=== PATIENT | male | born 1960 | race Caucasian/White ===

== ENCOUNTER 2020-10-26 19:14 | Emergency (ER) | payer MEDICAID ==
[~2020-10-26] VITALS: Ht 175.3 cm; Wt 81.6 kg
[~2020-10-26 19:14] MED LIST: ENAL20TA70 PO; LEVO100C2 PO; METF1000 PO
--- NOTE | 2020-10-26 19:14 | NUR ---
Patient to ER bed 1 to gown for evaluation. Side rails up. Report given to self. ER at bedside examining patient.
--- NOTE | 2020-10-26 19:18 | NUR ---
60 y/o male arrived with BS 32, was given amp of D10 by paramedics on scene upon arrival. Pt awake and alert oriented x 4. Repeat accucheck 58. Pt medicated with one amp fo D50 per . order of Dr. Rubin. Will repeat accucheck in 30 minutes. Will continue to monitor.
[2020-10-26 19:28] VITALS: BP_SYST 213
--- NOTE | 2020-10-26 19:48 | NUR ---
Patient transported to radiology via gurney, accompanied by diesel technician.
[2020-10-26 19:52] LABS: BASOPHILS # (AUTO) 0.1 K/uL (0.0-0.2); BASOPHILS % (AUTO) 0.7 % (0.0-2.0); EOSINOPHILS # (AUTO) 0.1 K/uL (0.0-0.4); EOSINOPHILS % (AUTO) 0.9 % (0.0-4.0); HEMATOCRIT 41.3 % (36-54); HEMOGLOBIN 13.4 g/dL (14.0-18.0); LYMPHOCYTES % (AUTO) 27.9 % (20.5-51.5); MEAN CORPUSCULAR HEMOGLOBIN 30 pg (27-31); MEAN CORPUSCULAR HGB CONC 33 % (32-36); MEAN CORPUSCULAR VOLUME 92 fL (79.0-98.0); MONOCYTES # (AUTO) 1.3 K/uL (0.0-1.0); MONOCYTES % (AUTO) 12.3 % (1.7-9.3); NEUTROPHILS # (AUTO) 6.3 K/uL (1.8-7.7); NEUTROPHILS % (AUTO) 58.2 % (40.0-70.0); PLATELET COUNT (AUTO) 375 K/uL (130-430); RED BLOOD CELL COUNT(AUTO) 4.48 MIL/uL (4.2-6.2); RED CELL DISTRIBUTION WIDTH 13.7 % (9.0-15.0); WHITE BLOOD COUNT (AUTO) 10.9 K/uL (4.8-10.8)
--- NOTE | 2020-10-26 20:05 | NUR ---
Repeat accucheck noted at 97. Pt has already been given food tray, tolerating meals. Will continue to monitor.
[2020-10-26 20:11] LABS: ANION GAP 7 (5-15); CALCIUM 8.7 mg/dL (8.4-11.0); CHLORIDE 98 mmol/L (98-107); CREATININE 1.04 mg/dL (0.55-1.30); GLUCOSE 168 mg/dL (70-99); POTASSIUM 3.5 mmol/L (3.5-5.1); SODIUM SERUM 134 mmol/L (136-145); UREA NITROGEN, BLOOD 28 mg/dL (8-21)
[2020-10-26 20:14] LABS: GFR AFRICAN AMERICAN 94 mL/min (>90)
[2020-10-26 20:22] LABS: ALANINE AMINOTRANSFERASE 48 U/L (12-78); ALBUMIN 3.8 g/dL (3.4-4.8); ASPARTATE AMINOTRANSFERASE 47 U/L (10-37); TOTAL BILIRUBIN 0.2 mg/dL (0.0-1.0)
[2020-10-26] MEDS ORDERED: DEXTROSE 50% JECT 50 ML DISP.SYRIN IVP ONE (20:30)
--- NOTE | 2020-10-26 21:00 | NUR ---
Patient resting quietly. No acute distress noted. Vital signs within normal range. Accucheck MD Sourav made aware. Pt continues to be A/O x4. Will continue to monitor.
--- NOTE | 2020-10-26 22:00 | NUR ---
Patient resting quietly. No acute distress noted. Vital signs within normal range. Accmerrill Ordonez MD made aware. Pt continues to be A/O x4. Will continue to monitor.
--- NOTE | 2020-10-26 22:38 | NUR ---
Dr. Xiao speaking with mother on the phone about pt's plan of care.
[2020-10-26 23:10] VITALS: BP_SYST 135
--- NOTE | 2020-10-26 23:10 | NUR ---
Patient given written and verbal discharge instructions and verbalizes understanding. ER MD discussed with patient the results and treatment provided. Patient in stable condition. ID arm band removed. IV catheter removed intact and dressing applied, no active bleeding. Patient educated on hypoglycemia management and to follow up with PMD. Pain Scale 0/10. Opportunity for questions provided and answered. Medication side effect fact sheet provided.
== END 2020-10-26 23:10 | disposition home or self-care (01) ==
LOC: SED 19:14
DX: E16.2 Hypoglycemia, unspecified (principal)
CPT/HCPCS: 36415; 70450-TC; 76376; 80053; 82962; 84484; 85025; 93005; 96374; 99291

== ENCOUNTER 2020-11-17 20:54 | Emergency (ER) | payer MEDICAID ==
[~2020-11-17] VITALS: Ht 177.8 cm; Wt 81.6 kg
[2020-11-17 20:55] VITALS: BP_SYST 182
[2020-11-17 21:13] LABS: BASOPHILS # (AUTO) 0.1 K/uL (0.0-0.2); BASOPHILS % (AUTO) 0.9 % (0.0-2.0); EOSINOPHILS % (AUTO) 0.1 % (0.0-4.0); HEMATOCRIT 44.4 % (36-54); HEMOGLOBIN 14.7 g/dL (14.0-18.0); LYMPHOCYTES # (AUTO) 1.7 K/uL (1.0-5.5); LYMPHOCYTES % (AUTO) 14.6 % (20.5-51.5); MEAN CORPUSCULAR HEMOGLOBIN 30 pg (27-31); MEAN CORPUSCULAR HGB CONC 33 % (32-36); MEAN CORPUSCULAR VOLUME 91 fL (79.0-98.0); MONOCYTES # (AUTO) 0.7 K/uL (0.0-1.0); MONOCYTES % (AUTO) 6.3 % (1.7-9.3); NEUTROPHILS # (AUTO) 9.3 K/uL (1.8-7.7); NEUTROPHILS % (AUTO) 78.1 % (40.0-70.0); PLATELET COUNT (AUTO) 406 K/uL (130-430); RED BLOOD CELL COUNT(AUTO) 4.86 MIL/uL (4.2-6.2); RED CELL DISTRIBUTION WIDTH 13.6 % (9.0-15.0); WHITE BLOOD COUNT (AUTO) 11.9 K/uL (4.8-10.8)
[2020-11-17 21:26] LABS: CALCIUM 9.1 mg/dL (8.4-11.0); CREATININE 1.02 mg/dL (0.55-1.30); POTASSIUM 3.5 mmol/L (3.5-5.1); PROTHROMBIN TIME 9.9 SECS (9.5-12.5)
[2020-11-17 21:32] LABS: ALBUMIN 4.4 g/dL (3.4-4.8); TOTAL BILIRUBIN 0.3 mg/dL (0.0-1.0)
[2020-11-17 21:55] LABS: CKMB RELATIVE INDEX 2.4 (0.0-2.9)
[2020-11-18 00:37] VITALS: BP_SYST 135
[2020-11-18] MEDS: DEXTROSE 50% JECT 50 ML DISP.SYRIN IVP ONE (00:53)
== END 2020-11-18 00:37 | disposition home or self-care (01) ==
LOC: SED 20:54
DX: E11.649 Type 2 diabetes mellitus with hypoglycemia without coma (principal); I10 Essential (primary) hypertension; Z79.899 Other long term (current) drug therapy
CPT/HCPCS: 36415; 71045; 80053; 82550-TC; 82553-TC; 82962; 83880; 84484; 85025; 85610-TC; 85730-TC; 93005; 96374; 99285

== ENCOUNTER 2020-11-28 00:25 | Emergency (ER) | payer MEDICAID ==
[~2020-11-28] VITALS: Ht 177.8 cm; Wt 68.0 kg
[2020-11-28 00:30] VITALS: BP_SYST 179
[2020-11-28] MEDS ORDERED: DEXTROSE 50% JECT 50 ML DISP.SYRIN IVP ONE (00:45)
== END 2020-11-28 02:50 | disposition left against medical advice (07) ==
LOC: SED 00:25
DX: E11.649 Type 2 diabetes mellitus with hypoglycemia without coma (principal); I10 Essential (primary) hypertension; Z79.899 Other long term (current) drug therapy
CPT/HCPCS: 70450-TC; 76376; 82962; 96374; 99284

== ENCOUNTER 2021-02-12 12:57 | Inpatient (IN) | payer MEDICAID ==
[~2021-02-12] VITALS: Ht 172.7 cm; Wt 77.1 kg
[2021-02-12 13:13] VITALS: BP_SYST 170
[2021-02-12] MEDS ORDERED: ONDANSETRON HCL 4 MG/2 ML VIAL IVP ONE (13:15)
[2021-02-12] MEDS ORDERED: NACL 0.9% 1,000 ML IV ONE ×3 (13:15→16:45)
--- NOTE | 2021-02-12 13:15 | NUR ---
Patient to ER bed 1 to gown for evaluation. Side rails up. Report given to Porsper SULLIVAN.
--- NOTE | 2021-02-12 13:20 | NUR ---
Pt came to Er for abdominal pain in all quadrants pain 10/10 nausea. Pt in [facility], severe pain noted, awaiting MD.
--- NOTE | 2021-02-12 13:30 | NUR ---
ER at bedside examining patient.
[2021-02-12 13:37] LABS: BASOPHILS % (AUTO) 0.5 % (0.0-2.0); EOSINOPHILS % (AUTO) 0.2 % (0.0-4.0); HEMATOCRIT 50.1 % (36-54); HEMOGLOBIN 16.9 g/dL (14.0-18.0); LYMPHOCYTES # (AUTO) 1.2 K/uL (1.0-5.5); LYMPHOCYTES % (AUTO) 17.5 % (20.5-51.5); MEAN CORPUSCULAR HEMOGLOBIN 31 pg (27-31); MEAN CORPUSCULAR HGB CONC 34 % (32-36); MEAN CORPUSCULAR VOLUME 92 fL (79.0-98.0); MONOCYTES # (AUTO) 0.3 K/uL (0.0-1.0); MONOCYTES % (AUTO) 3.8 % (1.7-9.3); NEUTROPHILS # (AUTO) 5.3 K/uL (1.8-7.7); PLATELET COUNT (AUTO) 503 K/uL (130-430); RED BLOOD CELL COUNT(AUTO) 5.45 MIL/uL (4.2-6.2); RED CELL DISTRIBUTION WIDTH 13.5 % (9.0-15.0); WHITE BLOOD COUNT (AUTO) 6.8 K/uL (4.8-10.8)
[2021-02-12] MEDS ORDERED: HALOPERIDOL LACTATE 5 MG/ML VIAL IVP ONE (13:45)
[2021-02-12 13:52] LABS: CALCIUM 9.7 mg/dL (8.4-11.0); CREATININE 1.45 mg/dL (0.55-1.30)
[2021-02-12] MEDS ORDERED: MORPHINE 4 MG INJ. 4 MG/ML VIAL IVP ONE (14:00)
[2021-02-12 14:08] LABS: ALBUMIN 3.9 g/dL (3.4-4.8); TOTAL BILIRUBIN 0.6 mg/dL (0.0-1.0)
[2021-02-12 14:10] LABS: POTASSIUM 6.1 mmol/L (3.5-5.1)
--- NOTE | 2021-02-12 14:40 | NUR ---
REPORT RECEIVED FROM ERIKA SULLIVAN.
[2021-02-12] MEDS ORDERED: INSULIN REGULAR, HUMAN 10 UNITS/0.1 ML INJ IVP ONE (14:45)
--- NOTE | 2021-02-12 15:05 | NUR ---
report received from NATE Jarrell
--- NOTE | 2021-02-12 15:15 | NUR ---
[id number]
[2021-02-12 15:26] LABS: FREE T4 (FREE THYROXINE) 1.3 ng/dl (0.8-1.5); THYROID STIMULATING HORMONE 3.07 uIu/mL (0.36-3.74)
[2021-02-12 15:30] LABS: BILIRUBIN,URINE NEGATIVE (NEGATIVE); BLOOD, URINE NEGATIVE (NEGATIVE); CLARITY/URINE CLEAR (CLEAR); COLOR,URINE YELLOW (YELLOW); GLUCOSE,URINE 3+ (NEGATIVE); KETONES,URINE 3+ (NEGATIVE); LEUKOCYTE ESTERASE ,URINE NEGATIVE (NEGATIVE); NITRITE, URINE NEGATIVE (NEGATIVE); PH,URINE 5.5 (5.0-8.0); PROTEIN URINE NEGATIVE (NEGATIVE); UROBILINOGEN,URINE 0.2 (0.2-1.0)
[2021-02-12 16:08] LABS: BACTERIA,URINE FEW /HPF (None Seen); MUCUS,URINE None Seen /LPF (None Seen); RBC,URINE 0-3 /HPF (0-3); WBC,URINE NONE SEEN /HPF (0-3)
[2021-02-12] MEDS ORDERED: INSULIN REGULAR, HUMAN 100 UNITS/ML, 10 ML VIAL IVP ONE (16:30)
--- NOTE | 2021-02-12 16:30 | NUR ---
BG 447
[2021-02-12] MEDS ORDERED: DEXTROSE 50% JECT 50 ML DISP.SYRIN IVP PRN (16:45)
[2021-02-12] MEDS ORDERED: LEVOTHYROXINE SODIUM 0.1 MG TABLET PO ONE (17:15)
--- NOTE | 2021-02-12 17:28 | NUR ---
BG 436
--- NOTE | 2021-02-12 18:34 | NUR ---
ACCUCHEK 425. Dr. Gann notified. Give 1L NS bolus Now and recheck accucheck
--- NOTE | 2021-02-12 18:49 | NUR ---
Patient will be admitted to care of BEDSIDE NURSE. Admitted to TELEMETRY unit. Will go to room 125. Belongings list completed. Complete and up to date summary report printed. SBAR report to be given at bedside with opportunity for questions.
--- NOTE | 2021-02-12 19:05 | NUR ---
ADMISSION NOTE Received patient from ER via ubaldo, received report from NATE ZELAYA. Patient admitted with diagnosis of ABDOMINAL PAIN. Patient oriented to hospital routine, call light, toileting and safety-patient verbalized understanding.
[2021-02-12 19:20] LABS: CALCIUM 9.7 mg/dL (8.4-11.0); CREATININE 1.36 mg/dL (0.55-1.30); POTASSIUM 4.8 mmol/L (3.5-5.1)
[2021-02-12] MEDS: NACL 0.9% 1,000 ML IV SCH (19:30)
[2021-02-12] MEDS ORDERED: ONDANSETRON HCL 4 MG/2 ML VIAL IVP PRN (19:45)
[2021-02-12] MEDS ORDERED: MORPHINE 2 MG/ML INJ. SYRINGE IVP PRN (19:45)
[2021-02-12] MEDS ORDERED: MORPHINE 4 MG INJ. 4 MG/ML VIAL IVP PRN (19:45)
[2021-02-12] MEDS ORDERED: METOCLOPRAMIDE HCL 10 MG/2 ML VIAL IVP PRN (19:45)
[2021-02-12] MEDS ORDERED: ACETAMINOPHEN 325 MG TABLET PO PRN (19:45)
[2021-02-12 19:49] VITALS: BP_SYST 160
--- NOTE | 2021-02-12 21:10 | NUR ---
HIGH ALERT NOTE: Called Dr. JIMÉNEZ back AND identified within the medical roster to verify physician authenticity. MD NOTIFIED OF LABS PER MD REQUEST AND BS LEVELS, MD ORDERED ONE TIME DOSE OF REGULAR INSULIN 12 UNITS SUBQ ONCE NOW.
[2021-02-12] MEDS ORDERED: INSULIN REGULAR, HUMAN 100 UNITS/ML, 10 ML VIAL SUBCUT ONE (21:15)
[2021-02-12] MEDS: INSULIN REGULAR, HUMAN 100 UNITS/ML, 10 ML VIAL (humuLIN R) SUBCUT PRN (23:20)
[2021-02-13] MEDS ORDERED: cloNIDine HCL 0.1 MG TABLET PO PRN (01:30)
[2021-02-13] MEDS ORDERED: HYDROmorphone 1 MG/ML INJ. CARTRIDGE IVP PRN (01:30)
--- NOTE | 2021-02-13 01:30 | NUR ---
HIGH ALERT NOTE: Called Dr. AMBROSIO back AND identified within the medical roster to verify physician authenticity. NOTIFIED THAT PATIENT STATED THAT MORPHINE DOESN'T WORK FOR HIM AND REQUESTING FOR DILAUDID INSTEAD FOR PAIN, MD ALSO NOTIFIED OF PATIENT'S ELEVATED BP. MD ORDERED DILAUDID 1MG IVP FOR MILD PAIN Q4H PRN, DILAUDID 2MG IVP FOR MODERATE TO SEVERE PAIN Q4H PRN, AND CLONIDINE 0.1MG PO Q6H PRN FOR SBP GREATER THAN 155.
[2021-02-13] MEDS ORDERED: HYDROmorphone 2 MG/ML VIAL ONE (01:45)
[2021-02-13] MEDS: NACL 0.9% 1,000 ML IV SCH ×4 (01:46→23:21)
[2021-02-13] MEDS: HYDROmorphone 2 MG/ML VIAL IVP PRN (01:48)
--- NOTE | 2021-02-13 04:26 | NUR ---
CONSULT REASON FOR CONSULT: DKA CONSULTING PHYSICIAN: DR. JIMÉNEZ PERSONAL INJURY SPECIALIST PHONE NUMBER: [phone] ORDERING PHYSICIAN: DR. DAILY JIMÉNEZ CAME AND SAW THE PATIENT IN ER.
--- NOTE | 2021-02-13 04:32 | NUR ---
CONSULT REASON FOR CONSULT: ABDOMINAL PAIN PERSON I SPOKE WITH: RAAD CONSULTING PHYSICIAN: DR. MCDANIEL (DR. GUTIERREZ HOUSING INSTALLER) CREDIT ADMINISTRATION MANAGER MAGGIE NUMBER: [phone] ORDERING PHYSICIAN: DR. AMBROSIO
[2021-02-13 05:00] VITALS: BP_SYST 146
[2021-02-13 06:28] LABS: BASOPHILS % (AUTO) 0.2 % (0.0-2.0); HEMOGLOBIN 14.9 g/dL (14.0-18.0); LYMPHOCYTES # (AUTO) 1.5 K/uL (1.0-5.5); LYMPHOCYTES % (AUTO) 10.6 % (20.5-51.5); MEAN CORPUSCULAR HEMOGLOBIN 30 pg (27-31); MEAN CORPUSCULAR HGB CONC 34 % (32-36); MEAN CORPUSCULAR VOLUME 90 fL (79.0-98.0); MONOCYTES # (AUTO) 0.8 K/uL (0.0-1.0); MONOCYTES % (AUTO) 5.2 % (1.7-9.3); NEUTROPHILS # (AUTO) 12.2 K/uL (1.8-7.7); PLATELET COUNT (AUTO) 475 K/uL (130-430); RED CELL DISTRIBUTION WIDTH 13.4 % (9.0-15.0); WHITE BLOOD COUNT (AUTO) 14.5 K/uL (4.8-10.8)
[2021-02-13] MEDS: LEVOTHYROXINE SODIUM 0.1 MG TABLET PO SCH (06:29)
[2021-02-13] MEDS: INSULIN REGULAR, HUMAN 100 UNITS/ML, 10 ML VIAL (humuLIN R) SUBCUT PRN ×4 (06:34→23:26)
--- NOTE | 2021-02-13 06:39 | NUR ---
CLOSING NOTES Patient resting in bed, awake, breathing evenly and nonlabored on room air. IVF running, patient tolerating it well. Due medications and PRN medications were given throughout the shift, patient tolerated them well. BS was checked as ordered, coverage was needed and given at both times. Hygiene care was done, patient denies any pain or SOB at this time. Needs met throughout the shift. Fall/safety precautions, will endorse care to morning shift RN.
[2021-02-13 06:41] LABS: ALBUMIN 3.3 g/dL (3.4-4.8); CALCIUM 8.5 mg/dL (8.4-11.0); CREATININE 0.94 mg/dL (0.55-1.30); POTASSIUM 4.1 mmol/L (3.5-5.1); TOTAL BILIRUBIN 0.4 mg/dL (0.0-1.0)
--- NOTE | 2021-02-13 06:53 | NUR ---
Nutrition Update Mark Scale 17 noted. Pt admitted for Abdominal pain Diet: Clear liquid BMI: 25.8 kg/m2 RD to follow per nutrition care standards.
[2021-02-13 08:00] VITALS: BP_SYST 156
--- NOTE | 2021-02-13 10:10 | NUR ---
ASSESSED AND EXAMINED PT , THIS RN CONCURS WITH ERVIN ORTIZ'S ASSESSMENT OF PT
--- NOTE | 2021-02-13 11:30 | NUR ---
PT IN BED, RESTING, EYES CLOSED BUT RESPONDS TO VOICE. NO C/O OF ABD PAIN, NO N/V. WILL CONT TO MONITOR.
[2021-02-13 12:59] VITALS: BP_SYST 164
--- NOTE | 2021-02-13 13:16 | NUR ---
Spoke w/ Rojas at [facility]-Patient is capitated to [facility]. Plan to transfer to [facility] under the care of Dr Cooper.
--- NOTE | 2021-02-13 15:01 | NUR ---
Rounded on patient, patient in bed, no complaints of pain, filled water and emptied urinal. patient voided 750ml urine.
[2021-02-13 16:09] VITALS: BP_SYST 162
--- NOTE | 2021-02-13 17:14 | NUR ---
Patient to transfer to [facility] under the care of Dr Cooper. [facility] is on will call [phone] Auth # [id number]. Rojas will call with room # and # for report for [facility] [phone]. Discharge disposition 02
--- NOTE | 2021-02-13 18:43 | NUR ---
CLOSING NOTES, PT HAS BEEN STABLE THE WHOLE SHIFT, BLOOD SUGAR IN THE 300S, GIVEN CORRESPONDING DOSE OR REG INSULIN. NO C/O OF PAIN SINCE START OF SHIFT, NO N/V. WILL ENDORSE TO NIGHT NURSE.
[2021-02-13 19:26] VITALS: BP_SYST 142
[2021-02-13 20:09] VITALS: BP_SYST 142
--- NOTE | 2021-02-13 20:09 | NUR ---
OPENING NOTES Received report from Andres RN earlier. Patient resting in bed, AAOx4, vital signs stable, patient denies any pain or SOB at this time. Patient has an IV on the left AC 20g, IVF running, patient tolerating it well. No s/s of infiltration or infection at this time. Educated patient on plan of care, fall/safety precautions, call light system, patient stated understanding with return demonstration. Patient is pending transfer to [facility], no call from Rojas as of now. Patient is aware. Bed is locked, armed, and at lowest position, will continue to monitor.
--- NOTE | 2021-02-13 21:30 | NUR ---
CALLED COLTON PENG, NETWORK OPERATIONS CENTER ENGINEER FROM [facility] TO FOLLOW UP TRANSFER, NO RESPONSE, LEFT A VOICEMAIL.
[2021-02-14 00:01] VITALS: BP_SYST 144
[2021-02-14] MEDS: HYDROmorphone 2 MG/ML VIAL IVP PRN (01:24)
--- NOTE | 2021-02-14 01:24 | NUR ---
PATIENT COMPLAINED OF A HEADACHE, MODERATE PAIN. EDUCATED PATIENT ON NON PHARMACOLOGICAL INTERVENTIONS AND PRN MEDICATIONS. PATIENT STATED UNDERSTANDING. ADMINISTERED MEDICATION. PATIENT TOLERATED WELL. NO OTHER NEEDS AT THIS TIME. FALL/SAFETY PRECAUTIONS, WILL CONTINUE TO MONITOR.
[2021-02-14 06:28] VITALS: BP_SYST 137
[2021-02-14] MEDS: LEVOTHYROXINE SODIUM 0.1 MG TABLET PO SCH (06:28)
[2021-02-14] MEDS: INSULIN REGULAR, HUMAN 100 UNITS/ML, 10 ML VIAL (humuLIN R) SUBCUT PRN ×2 (06:34→11:17)
--- NOTE | 2021-02-14 06:58 | NUR ---
CLOSING NOTES Patient resting in bed, awake, breathing evenly and nonlabored on room air. IVF running, patient tolerating it well. Due medications and PRN medications were given throughout the shift, patient tolerated them well. BS was checked as ordered, coverage was needed and given at both times. Patient denies any SOB at this time. PRN pain medication was given for mild pain this morning. Needs met throughout the shift. Fall/safety precautions, will endorse care to morning shift RN.
[2021-02-14 08:00] VITALS: BP_SYST 125
--- NOTE | 2021-02-14 08:00 | NUR ---
Opening note Patient is sitting in bed A&Ox4, agitated and frustrated states "I dont understand why I'm still here. Attempted to educate however patient "doesn't want to hear it". No complaint of pain no signs or symptoms of respiratory distress. Iv is in place, no signs or symptoms of infiltration. Educated patient on plan of care, patient verbalized frustration and wants to leave. Will continue to reenforce education. Bed is in lowest position, fall and aspiration precautions are in place. Will continue to monitor.
--- NOTE | 2021-02-14 08:05 | NUR ---
RN note Abdominal ultrasound ordered, educated patietn that he must stay NPO until ultrasound is done. Patient stated "you're not taking my tray away" Provided education on why they are getting the Ultrasound, Patient is still refusing. Will inform MD.
--- NOTE | 2021-02-14 08:55 | NUR ---
Rn note informed by laboratory, patient is refusing lab draws states "You are taking too much blood from me, I just want to go home." Will inform .
--- NOTE | 2021-02-14 10:00 | NUR ---
Rn note assessed patient and is ok with patient being discharged. Advanced diet to [facility]. Will monitor tolerance to diet.
--- NOTE | 2021-02-14 10:07 | NUR ---
rounds assessed patietn, is ok with patietn being discharged. No new orders. Will continue to monitor.
[2021-02-14 10:28] VITALS: BP_SYST 125
[2021-02-14 12:30] VITALS: BP_SYST 149
[2021-02-14] MEDS: NACL 0.9% 1,000 ML IV SCH (13:23)
--- NOTE | 2021-02-14 14:30 | NUR ---
D/C Patient Patient given medication reconciliation form and D/C instructions. Exit Care provided. Patient verbalized understanding. MD discussed with patient the results and treatment provided. Ambulatory with steady gait for discharge to home. Patient in stable condition, ID band removed. IV catheter removed, intact and dressing applied, no active bleeding. All belongings sent with patient.
== END 2021-02-14 14:30 | disposition home or self-care (01) | DRG 420 ==
LOC: SED 12:57 → SMU 15:54 → STU 18:48
PROVIDERS: ADMIT Internal Medicine Hospice and Palliative Medicine; ATTEND Internal Medicine Hospice and Palliative Medicine
DX: E11.10 Type 2 diabetes mellitus with ketoacidosis without coma (principal); N17.0 Acute kidney failure with tubular necrosis; Z60.2 Problems related to living alone; I10 Essential (primary) hypertension; Z20.822 Contact with and (suspected) exposure to COVID-19; E78.5 Hyperlipidemia, unspecified; Z79.899 Other long term (current) drug therapy; Z87.891 Personal history of nicotine dependence
CPT/HCPCS: 36415; 36600; 76376; 76700-TC; 80048; 80053; 81000; 82009; 82803-TC; 82962; 83036; 83605; 83690; 84100; 84439; 84443; 85025; 96361; 96374; 96375; 96376; 99285; G0378; J1170; J1630; J1815; J2270; J2405

== ENCOUNTER → 2021-09-03 | Emergency (ER) | payer MEDICAID, SELFPAY ==
[~2021-09-03] MED LIST changes: +INSU100I35 SQ; +INSULIN REGULAR, HUMAN 10 UNITS/0.1 ML INJ SUBCUT ONE; +LEVO75TA7 PO; +LIP10 PO
== END ==
LOC: SED 12:34
DX: E11.65 Type 2 diabetes mellitus with hyperglycemia (principal); I10 Essential (primary) hypertension; Z79.899 Other long term (current) drug therapy; Z79.84 Long term (current) use of oral hypoglycemic drugs
CPT/HCPCS: 96372; 99283